=== PATIENT | female | born 1995 | race Caucasian/White ===

== ENCOUNTER 2017-05-09 17:08 | Emergency (ER) | payer OTHER ==
[~2017-05-09] VITALS: Ht 190.5 cm; Wt 62.6 kg
[~2017-05-09 17:08] MED LIST: AZIT250 PO; BENZ1 PO; BUPR150ER PO; RISP.25 PO; RISP1 PO
[2017-05-09] MEDS ORDERED: METPHE10 PO (17:23)
[2017-05-09] MEDS ORDERED: VENL25 PO (17:23)
[2017-05-09] MEDS ORDERED: IBUPROFEN200 MG PO (18:18)
[2017-05-09] MEDS ORDERED: CEPH500 PO (18:18)
== END 2017-05-09 18:27 | disposition home or self-care (01) ==
LOC: ER 17:08
DX: S02.32XA Fracture of orbital floor, left side, initial encounter for closed fracture (principal); Z88.6 Allergy status to analgesic agent; Z79.899 Other long term (current) drug therapy; W51.XXXA Accidental striking against or bumped into by another person, initial encounter
CPT/HCPCS: 70480; 99283

== ENCOUNTER → 2018-02-19 | Outpatient (CLI) | payer OTHER ==
[~2018-02-19] MED LIST changes: +CEPH500 PO; +IBUPROFEN200 MG PO; +METPHE10 PO; +VENL25 PO
[2018-02-19 19:20] LABS: Anion Gap 8 mmol/L (6-16); Blood Urea Nitrogen 20 mg/dL (8-24); Bun/Creatinine Ratio 24.4 (12.0-20.0); CO2, Blood 27 mmol/L (21-32); Calcium, Blood 8.5 mg/dL (8.5-10.1); Chloride, Blood 105 mmol/L (98-108); Creatinine, Blood 0.82 mg/dL (0.40-1.00); Glomerular Filtration Rate >60 (60-); Glucose, Blood 95 mg/dL (70-99); Sodium, Blood 140 mmol/L (136-145)
== END | disposition home or self-care (01) ==
LOC: LAB SHORT 19:10 → LAB EV 19:10
PROVIDERS: Internal Medicine
DX: M54.5 Low back pain (principal); Z87.448 Personal history of other diseases of urinary system
CPT/HCPCS: 80048; 85651

== ENCOUNTER → 2018-10-29 | Outpatient (CLI) | payer OTHER | END | disposition home or self-care (01) | LOC: LAB EV 13:41 → LAB SHORT 13:41 | DX: J02.9 Acute pharyngitis, unspecified (principal) | CPT/HCPCS: 87081 ==

== ENCOUNTER 2020-11-20 23:04 | Emergency (ER) | payer OTHER ==
[~2020-11-20] VITALS: Ht 193 cm; Wt 67.1 kg
[2020-11-20] MEDS ORDERED: GABA100 PO (23:28)
== END 2020-11-20 23:47 | disposition home or self-care (01) ==
LOC: ER 23:04
DX: Z00.8 Encounter for other general examination (principal); F17.200 Nicotine dependence, unspecified, uncomplicated; Z88.6 Allergy status to analgesic agent; Z79.899 Other long term (current) drug therapy
CPT/HCPCS: 99284

== ENCOUNTER → 2022-02-26 | Outpatient (CLI) | payer OTHER ==
[~2022-02-26] MED LIST changes: +GABA100 PO
== END | disposition home or self-care (01) ==
LOC: LAB SHORT 17:07
DX: K52.9 Noninfective gastroenteritis and colitis, unspecified (principal); R53.83 Other fatigue
CPT/HCPCS: 84443

== ENCOUNTER 2022-04-17 21:27 | Emergency (ER) | payer OTHER ==
[~2022-04-17] VITALS: Ht 193 cm; Wt 79.4 kg
[2022-04-17] MEDS ORDERED: ACET500 PO (21:35)
[2022-04-17] MEDS ORDERED: SUMA25 PO (21:35)
[2022-04-17 22:27] LABS: BASOPHILS ABSOLUTE AUTO 0.05 K/mm3 (0.00-0.23); BASOPHILS PERCENT AUTO 1 % (0-2); EOSINOPHILS ABSOLUTE AUTO 0.09 K/mm3 (0.00-0.68); EOSINOPHILS PERCENT AUTO 1 % (0-6); Hematocrit 40.1 % (33.0-51.0); Hemoglobin 13.4 g/dL (11.5-16.0); IMMATURE GRAN ABSOLUTE AUTO 0.01 K/mm3 (0.00-0.10); IMMATURE GRAN PERCENT AUTO 0 % (0-1); LYMPHOCYTES PERCENT AUTO 37 % (21-46); MONOCYTES PERCENT AUTO 9 % (4-13); Mean Corpuscular HGB 30.7 pg (26.0-34.0); Mean Corpuscular HGB Conc 33.4 g/dL (31.5-36.5); Mean Corpuscular Volume 92 fL (80-100); Mean Platelet Volume 9.7 fL (9.1-12.4); NEUTROPHILS ABSOLUTE AUTO 3.95 K/mm3 (1.96-9.15); NEUTROPHILS PERCENT AUTO 52 % (41-73); Platelet Count 241 K/mm3 (150-400); RDW Coefficient Variation 13.8 % (11.7-14.2); RDW Standard Deviation 46.8 fL (35.1-46.3); Red Blood Cell Count 4.36 M/mm3 (3.80-5.20)
[2022-04-17 23:30] LABS: Albumin, Blood 4.4 g/dL (3.4-5.0); Albumin/Globulin Ratio 1.3 (0.8-1.8); Bilirubin, Total 0.3 mg/dL (0.1-1.0); Bun/Creatinine Ratio 18.5 (12.0-20.0); Calcium, Blood 9.4 mg/dL (8.5-10.1); Creatinine, Blood 0.7 mg/dL (0.40-1.00); Globulin, Blood 3.4 g/dL (2.2-4.0); Potassium, Blood 3.6 mmol/L (3.5-5.5); Total Protein, Blood 7.8 g/dL (6.4-8.2)
[2022-04-18] MEDS ORDERED: ONDA4ODT MM (00:05)
== END 2022-04-18 00:28 | disposition home or self-care (01) ==
LOC: ER 21:27
PROVIDERS: Student in an Organized Health Care Education/Training Program
DX: R10.9 Unspecified abdominal pain (principal); R11.0 Nausea; Z88.6 Allergy status to analgesic agent; Z79.899 Other long term (current) drug therapy; F17.290 Nicotine dependence, other tobacco product, uncomplicated
CPT/HCPCS: 36415; 76705; 80053; 83690; 84703; 85025; 93005; 93010; 99284-25; A9270; J7030

== ENCOUNTER 2023-01-16 07:36 | Emergency (ER) | payer OTHER ==
[~2023-01-16] VITALS: Ht 193 cm; Wt 90.7 kg
[~2023-01-16 07:36] MED LIST changes: +ACET500 PO; +ONDA4ODT MM; +SUMA25 PO
[2023-01-16] MEDS ORDERED: GABA300 (07:56)
[2023-01-16] MEDS ORDERED: CODEINE SULFATE PO (07:57)
[2023-01-16] MEDS ORDERED: DULO30 PO (07:57)
[2023-01-16] MEDS ORDERED: OMEP20ER PO (07:58)
[2023-01-16] MEDS ORDERED: Bentyl20 MG PO (07:58)
[2023-01-16] MEDS ORDERED: Robaxin750 MG (07:59)
[2023-01-16 08:15] LABS: BASOPHILS ABSOLUTE AUTO 0.01 K/mm3 (0.00-0.23); BASOPHILS PERCENT AUTO 0 % (0-2); EOSINOPHILS ABSOLUTE AUTO 0.03 K/mm3 (0.00-0.68); EOSINOPHILS PERCENT AUTO 1 % (0-6); Hemoglobin 13.5 g/dL (11.5-16.0); IMMATURE GRAN ABSOLUTE AUTO 0.03 K/mm3 (0.00-0.10); IMMATURE GRAN PERCENT AUTO 1 % (0-1); LYMPHOCYTES ABSOLUTE AUTO 0.42 K/mm3 (0.84-5.20); LYMPHOCYTES PERCENT AUTO 7 % (21-46); MONOCYTES ABSOLUTE AUTO 0.36 K/mm3 (0.16-1.47); MONOCYTES PERCENT AUTO 6 % (4-13); Mean Corpuscular HGB 30.1 pg (26.0-34.0); Mean Corpuscular HGB Conc 32.9 g/dL (31.5-36.5); Mean Corpuscular Volume 91 fL (80-100); Mean Platelet Volume 9.7 fL (9.1-12.4); NEUTROPHILS ABSOLUTE AUTO 5.63 K/mm3 (1.96-9.15); NEUTROPHILS PERCENT AUTO 87 % (41-73); Platelet Count 188 K/mm3 (150-400); RDW Coefficient Variation 12.7 % (11.7-14.2); RDW Standard Deviation 42.3 fL (35.1-46.3); Red Blood Cell Count 4.49 M/mm3 (3.80-5.20); White Blood Cell Count 6.48 K/mm3 (4.00-11.30)
[2023-01-16 08:50] LABS: Albumin, Blood 3.6 g/dL (3.4-5.0); Albumin/Globulin Ratio 1.1 (0.8-1.8); Bilirubin, Total 0.3 mg/dL (0.1-1.0); Bun/Creatinine Ratio 14.3 (12.0-20.0); Calcium, Blood 8.5 mg/dL (8.5-10.1); Creatinine, Blood 0.77 mg/dL (0.40-1.00); Globulin, Blood 3.3 g/dL (2.2-4.0); Total Protein, Blood 6.9 g/dL (6.4-8.2)
[2023-01-16 09:54] LABS: Source, Urine Clean Catch
[2023-01-16 09:57] LABS: Bilirubin, Urine Neg (Neg); Blood, Urine Neg (Neg); Color, Urine Yellow (P-Yellow); Glucose Qualitative, Urine Neg (Neg); Ketones, Urine Neg (Neg); Leukocyte Esterase, Urine Neg (Neg); Nitrite, Urine Neg (Neg); Protein, Urine Neg (Neg); Urobilinogen, Urine NORM (Normal)
[2023-01-16 10:11] LABS: Appearance, Urine Clear (Clear)
[2023-01-16] MEDS ORDERED: IBUP800 PO (13:25)
[2023-01-16] MEDS ORDERED: Norco 5-325 Ta1 EACH PO (13:25)
[2023-01-16] MEDS ORDERED: Neurontin 300300 MG PO ×2 (13:25→13:35)
[2023-01-16 13:50] VITALS: BP 131/86
== END 2023-01-16 14:09 | disposition home or self-care (01) ==
LOC: ER 07:36
PROVIDERS: Emergency Medicine
DX: R51.9 Headache, unspecified (principal); M54.2 Cervicalgia; G89.29 Other chronic pain; M54.50 Low back pain, unspecified; F17.290 Nicotine dependence, other tobacco product, uncomplicated; Z88.4 Allergy status to anesthetic agent; Z88.6 Allergy status to analgesic agent; Z79.899 Other long term (current) drug therapy
CPT/HCPCS: 70450; 72125; 80053; 81003; 85025; 96374; 96375; 96376; 99284-25; A9270; J1170; J1885; J2060; J2405

== ENCOUNTER 2023-09-11 14:29 | Emergency (ER) | payer OTHER ==
[~2023-09-11] VITALS: Ht 193 cm; Wt 99.8 kg
[~2023-09-11 14:29] MED LIST changes: +Bentyl20 MG PO; +CODEINE SULFATE PO; +DULO30 PO; +GABA300; +IBUP800 PO; +Neurontin 300300 MG PO; +Norco 5-325 Ta1 EACH PO; +OMEP20ER PO; +Robaxin750 MG
[2023-09-11 14:31] VITALS: BP 146/103
[2023-09-11] MEDS ORDERED: LOSA50 PO (14:45)
== END 2023-09-11 14:45 | disposition home or self-care (01) ==
LOC: ER 14:29
DX: I10 Essential (primary) hypertension (principal); K21.9 Gastro-esophageal reflux disease without esophagitis; F17.290 Nicotine dependence, other tobacco product, uncomplicated; G43.909 Migraine, unspecified, not intractable, without status migrainosus; Z79.899 Other long term (current) drug therapy; Z88.6 Allergy status to analgesic agent; Z88.8 Allergy status to other drugs, medicaments and biological substances
CPT/HCPCS: 99282